=== PATIENT | male | born 1980 | race Caucasian/White ===

== ENCOUNTER 2024-07-04 05:09 | Emergency (ER) | payer BC, MEDICAID, SELFPAY ==
--- NOTE | ~2024-07-04 | CT_ITS ---
EXAMINATION: CT ABDOMEN AND PELVIS WITHOUT CONTRAST CLINICAL INFORMATION: Right flank pain. Hematuria. COMPARISON: None available. TECHNIQUE: Multidetector volumetric imaging was performed from the superior aspect of the liver through the pubic symphysis. Sagittal and coronal reformatted images were obtained on the technologist's workstation. This CT examination was performed using dose optimization techniques as appropriate, variously including the following: *Automated exposure control *Adjustment of mA and/or kV according to patient size (this includes techniques or standardized protocols for targeted exams where dose is matched to indication/reason for exam; i.e. extremities or head) *Use of iterative reconstruction technique DLP: 1293 mGy-cm FINDINGS: Visualized lung bases are well aerated. Thin pleural-based linear density within the medial right lung base is nonspecific but most suggestive of atelectasis versus scarring. The liver is normal in size. There is diffusely decreased attenuation of the liver. The gallbladder is normal in appearance. There is fatty atrophy of the pancreas. The spleen and adrenal glands are unremarkable. There is mild right-sided hydronephrosis secondary to a 7 mm calculus within the proximal right ureter. No other renal calculi are noted within the right kidney. There is mild to moderate asymmetric perinephric stranding of the right kidney. There is a 1.2 cm nonobstructing calculus noted within the lower pole of the left kidney. This stone demonstrates Hounsfield units of approximately 500 and is located 14 cm the posterior skin surface. There is no left-sided hydronephrosis. Normal caliber loops of small and large bowel. Mild colonic diverticulosis without CT evidence to suggest active diverticulitis. Normal appendix. Normal caliber abdominal aorta. No retroperitoneal lymphadenopathy. The bladder is normal in appearance. The prostate gland is normal in size. No gross free pelvic fluid. No inguinal lymphadenopathy. Mild diffuse degenerative changes of the spine CT/CT abdomen pelvis wo IV con IMPRESSION: 1. Mild right-sided hydronephrosis secondary to a 7 mm calculus within the proximal right ureter. 2. 1.2 cm nonobstructing calculus of the left kidney. No left-sided hydronephrosis. 3. Diffusely decreased attenuation of the liver suggesting hepatic steatosis. Correlation with liver enzymes recommended. 4. Mild colonic diverticulosis. Fleischner guidelines were followed. Electronically signed by: Malik Trejo MD 07/04/2024 08:38 AM EDT
[2024-07-04 05:13] VITALS: BP 139/87; PULSE 81; RESP 20; TEMP 36.9; O2SAT 98; BMI 46.0
[2024-07-04 05:34] LABS: MANUAL DIFF FLAG NO
[2024-07-04 05:36] LABS: Basophils Absolute Auto 0.1 X10*3/uL (0.0-0.2); Basophils Percent Auto 0.7 % (0-2); Eosinophils Absolute Auto 0.3 X10*3/uL (0.0-0.4); Eosinophils Percent Auto 2.6 % (0-4); Hematocrit 44.6 % (42.0-52.0); Hemoglobin 15.6 g/dl (14.0-18.0); Imm Gran Abs Auto 0.07 X10*3/uL (0.00-0.03); Imm Gran Pct Auto 0.7 % (0.0-0.4); Lymphocytes Absolute Auto 2.1 X10*3/uL (1.2-4.9); Mean Corpuscular Hemoglobin 29.1 pg (27.0-33.0); Mean Corpuscular Volume 83.1 fL (80.0-98.0); Mean Platelet Volume 10.2 fL (9.4-12.4); Monocytes Absolute Auto 0.6 X10*3/uL (0.1-1.2); Monocytes Percent Auto 5.9 % (2-11); Neutrophils Percent Auto 69.1 % (45-73); Platelet Count 241 X10*3/uL (160-400); Red Blood Count 5.37 X10*6/uL (4.60-5.80); Red Cell Distribution Width 12.7 % (11.0-16.0); White Blood Count 10.2 X10*3/uL (4.8-10.8)
[2024-07-04 05:45] VITALS: BP 171/89; PULSE 76; RESP 17; TEMP 37.1
[2024-07-04 05:57] LABS: Alanine Aminotransferase 37 U/L (0-40); Albumin Level 4.4 g/dL (3.5-5.0); Alkaline Phosphatase 84 U/L (39-117); Anion Gap 18 (12-20); Aspartate Amino Transferase 19 U/L (5-37); Bilirubin Total 0.8 mg/dL (0.0-1.0); Blood Urea Nitrogen 13 mg/dL (9-16); Calcium 9.1 mg/dL (8.4-10.2); Carbon Dioxide 22 mmol/L (22-29); Chloride 99 mmol/L (96-108); Creatinine Clr Calc Pharmacy 136.2; Estimated Glomerular Filt Rate > 60; Glucose Random 295 mg/dL (60-115); Lipase 31 U/L (8-78); Potassium 3.7 mmol/L (3.3-5.1); Sodium 135 mmol/L (135-145); Total Protein 7.1 g/dL (6.5-8.0)
[2024-07-04 06:05] LABS: COVID-19 Test Negative (Negative); IDNOW Serial# 6674DD1D
[2024-07-04 06:48] LABS: Appearance Urine Clear; Color Urine Yellow; Glucose Urine UA >=1000 mg/dL (Negative); Leukocyte Esterase Urine Negative (Negative); Nitrite Urine Negative (Negative); Specific Gravity - Urine 1.015 (1.005-1.025); UMIC TRIGGER UACC YES; Urine Blood Moderate (2+) (Negative); Urine Ketones 15 mg/dL (Negative); Urine Protein Negative (Neg-Trace)
[2024-07-04 06:53] LABS: Bacteria Urine None Seen (None Seen); Hyaline Casts Urine 0-2 /LPF (0-2); RBC Urine >20 /HPF (0-2); Squamous Epithelial Cell Urine 0-2 /HPF (0-2); WBC Urine 0-5 /HPF (0-5)
--- NOTE | 2024-07-04 07:30 | ED_ITS ---
HPI - Abdominal Pain General Chief Complaint: Abdominal Pain Stated Complaint: ? kidney stone Time Seen by Provider: 07/04/24 07:30 Source: patient Mode of arrival: ambulatory Limitations: no limitations History of Present Illness ED Provider: Bala Rico PA-C HPI narrative: 43-year-old male with a history of DM 2, obesity who presents to the ER for evaluation of acute onset of right flank pain, right lower back pain along with nausea and vomiting that woke him up out of sleep last night. Patient states the pain came on severe and suddenly, it waxes and wanes but is pretty constant. He has had intermittently radiates to the front of his abdomen but is mostly in his back and flank. He denies any diarrhea, fevers, hematuria, urgency or frequency. He denies any history of kidney stones in the past. No history of abdominal surgeries. MD elicited complaint: flank pain Pertinent past history: none Onset (ago): hour(s) Pain Consistency: constant Location: R flank Severity: severe Quality: stabbing Radiation: RUQ Migration to: no migration Exacerbating factors: nothing Relieving factors: nothing Associated symptoms: nausea and vomiting Related Data Previous Rx's ?Medication ?Instructions ?Recorded naproxen 500 mg tablet 500 mg PO BID PRN pain #14 tabs 07/04/24 ondansetron 4 mg disintegrating 4 mg PO Q8H PRN nausea and 07/04/24 tablet vomiting #7 tabs oxycodone 5 mg tablet 5 mg PO Q6H PRN severe pain (scale 07/04/24 score 7-10) #9 tabs tamsulosin 0.4 mg capsule (Flomax) 0.4 mg PO DAILY #20 caps 07/04/24 Allergies Allergy/AdvReac Type Severity Reaction Status Date / Time No Known Allergies Allergy Verified 07/04/24 05:15 Review of Systems Review of Systems Yes all other systems are reviewed and are negative PMFSH Social History Social History Smoked in Last 30 Days: No Use of substances other than those prescribed or required for medical reasons: No Advance Directives: No Advance Directives Information Provided: Yes Physical Exam ED Vital Signs: Vital Signs - 24 hr 07/04/24 05:13 07/04/24 05:45 07/04/24 07:50 Temperature 98.4 F 98.7 F 98.6 F Pulse Rate 81 76 73 Respiratory Rate 20 17 16 Blood Pressure 139/87 171/89 H 188/86 H Pulse Oximetry 98 99 Oxygen Delivery Method Room Air Room Air Room Air 07/04/24 10:09 Temperature 98.2 F Pulse Rate 88 Respiratory Rate 14 Blood Pressure 154/86 H Pulse Oximetry 99 Oxygen Delivery Method Room Air BMI result Body Mass Index 46.0 Appearance: Alert. Oriented X3. Appears uncomfortable, lying still on the stretcher. Head: normocephalic, atraumatic. Eyes: Pupils equal, round and reactive to light. ENT: Pharynx normal. No tonsillar swelling or exudate. Neck: Normal inspection. Neck supple. CVS: Normal heart rate and rhythm. Pulses normal. Respiratory: No respiratory distress. Breath sounds normal. Abdomen: Obese, Soft and nontender. +CVA tenderness on the right. normal active +BS x4 Skin: Skin warm and dry. Normal skin color. Normal skin turgor. No rashes. Extremities: No lower extremity edema. No joint swelling. Neuro/psych: Oriented X 3. No motor deficit. No sensory deficit. CN II-XII intact. Normal speech and cognition. Medical Decision Making Medical Decision Making MDM Narrative: 43-year-old male with history of obesity and type 2 diabetes presents to the ER for evaluation of acute onset of right flank pain that waxes and wanes along with nausea and vomiting that woke him up out of sleep last night. On arrival to the ER patient is hypertensive, afebrile. Not tachycardic. Lab work was performed that shows no leukocytosis, no anemia. Normal renal function. His urinalysis shows microscopic hematuria but no evidence of infection. High clinical suspicion for kidney stone. IV was established and he was given IV fluids, Toradol and Zofran. CT scan of the abdomen and pelvis was performed that showed a 7 mm proximal ureteral stone with mild hydronephrosis. Patient had improvement to his pain from a 9 to a for with Toradol. He was given oral oxycodone as well. Patient had significant improvement in his pain down to a [address] Malave from Urology was consulted. Will plan to discharge home with outpatient follow-up. His office will be aware & nurse will triage on Saturday. Patient updated on results, diagnosis, plan and return precautions. Stable for DC. Differential Diagnosis Differential Diagnoses: The differential diagnosis associated with the presentation includes Obstructing kidney stone, pyelonephritis, cholecystitis, appendicitis Admission/Observation Consideration of admission/observation: Escalation of care including admission/observation considered Consult Healthcare Provider Management of the patient was discussed with: Associate Media Director Dr. Malave Lab Data MDM Lab Attestation statement: I reviewed the patient's lab results. No leukocytosis, no anemia, normal renal function, hyperglycemia without anion gap. Microscopic hematuria without infection 07/04/24 05:27 07/04/24 05:27 Labs: Lab Results 07/04/24 07/04/24 Range/Units 05:27 06:34 WBC 10.2 (4.8-10.8) X10*3/uL RBC 5.37 (4.60-5.80) X10*6/uL Hgb 15.6 (14.0-18.0) g/dl Hct 44.6 (42.0-52.0) % MCV 83.1 (80.0-98.0) fL MCH 29.1 (27.0-33.0) pg MCHC 35.0 (31.0-36.0) g/dl RDW 12.7 (11.0-16.0) % Plt Count 241 (160-400) X10*3/uL MPV 10.2 (9.4-12.4) fL Immature Gran % (Auto) 0.7 H (0.0-0.4) % Neut % (Auto) 69.1 (45-73) % Lymph % (Auto) 21.0 (20-40) % [place] % (Auto) 5.9 (2-11) % Eos % (Auto) 2.6 (0-4) % Baso % (Auto) 0.7 (0-2) % Lymph # (Auto) 2.1 (1.2-4.9) X10*3/uL [place] # (Auto) 0.6 (0.1-1.2) X10*3/uL Eos # (Auto) 0.3 (0.0-0.4) X10*3/uL Baso # (Auto) 0.1 (0.0-0.2) X10*3/uL Abs Immat Gran (auto) 0.07 H (0.00-0.03) X10*3/uL Absolute Neuts (auto) 7.0 (2.0-8.3) x10*3/uL Absolute Nucleated RBC 0.000 (0.0-0.012) X10*3/uL Nucleated RBC % (auto) 0.0 (0.0-0.2) /100WBC Sodium 135 (135-145) mmol/L Potassium 3.7 (3.3-5.1) mmol/L Chloride 99 (96-108) mmol/L Carbon Dioxide 22 (22-29) mmol/L Anion Gap 18 (12-20) BUN 13 (9-16) mg/dL Creatinine 0.89 (0.5-1.4) mg/dL Estim Creat Clear Calc 136.2 Estimated GFR > 60 Random Glucose 295 H (60-115) mg/dL Calcium 9.1 (8.4-10.2) mg/dL Total Bilirubin 0.8 (0.0-1.0) mg/dL AST 19 (5-37) U/L ALT 37 (0-40) U/L Alkaline Phosphatase 84 (39-117) U/L Total Protein 7.1 (6.5-8.0) g/dL Albumin 4.4 (3.5-5.0) g/dL Lipase 31 (8-78) U/L Urine Color Yellow Urine Appearance Clear Urine pH 7.0 (5.0-9.0) Ur Specific [place] 1.015 (1.005-1.025) Urine Protein Negative (Neg-Trace) mg/dL Urine Glucose (UA) >=1000 H (Negative) mg/dL Urine Ketones 15 (Negative) mg/dL Urine Blood Moderate (2+) H (Negative) Urine Nitrite Negative (Negative) Ur Leukocyte Esterase Negative (Negative) Urine RBC >20 H (0-2) /HPF Urine WBC 0-5 (0-5) /HPF Ur Squamous Epith Cells 0-2 (0-2) /HPF Urine Bacteria None Seen (None Seen) Hyaline Casts 0-2 (0-2) /LPF COVID-19 (DUNG) Negative (Negative) COVID-19 Clin Com See Note Independent Interpretation I performed an independent interpretation of an: CT Scan Interpretation: Proximal ureteral stone with hydronephrosis, agrees radiology read Radiology Impression Discussion of test interpretation with radiology: I have reviewed the radiologist's reading. Radiologist Impression: CT/CT abdomen pelvis wo IV con IMPRESSION: 1. Mild right-sided hydronephrosis secondary to a 7 mm calculus within the proximal right ureter. 2. 1.2 cm nonobstructing calculus of the left kidney. No left-sided hydronephrosis. 3. Diffusely decreased attenuation of the liver suggesting hepatic steatosis. Correlation with liver enzymes recommended. 4. Mild colonic diverticulosis. Prescription Management I considered prescription management with: Pain Medication Chronic Conditions Patient?s care impacted by: Diabetes Medications Administered Discontinued Medications Generic Name Dose Route Start Last Admin Trade Name Freq PRN Reason Stop Dose Admin Acetaminophen 975 mg 07/04/24 08:42 07/04/24 08:48 Acetaminophen 325 Mg Tablet PO 07/04/24 08:43 975 mg ONCE ONE Administration Sodium Chloride 1,000 mls @ 999 mls/hr 07/04/24 07:30 07/04/24 09:17 Ns IVCONT 07/04/24 08:30 Infused .Q1H1M MEKA Infusion Ketorolac Tromethamine 30 mg 07/04/24 07:30 07/04/24 07:47 Ketorolac Tromethamine 30 Mg/Ml Vial IVPUSH 07/04/24 07:31 30 mg ONCE ONE Administration Ondansetron HCl 4 mg 07/04/24 07:34 07/04/24 07:47 Ondansetron Hcl 4 Mg/2 Ml Vial IVPUSH 07/04/24 07:35 4 mg ONCE ONE Administration Oxycodone HCl 5 mg 07/04/24 08:42 07/04/24 08:48 Oxycodone Hcl Immed Release 5 Mg Tablet PO 07/04/24 08:43 5 mg ONCE ONE Administration Tamsulosin HCl 0.4 mg 07/04/24 08:38 07/04/24 08:48 Tamsulosin Hcl 0.4 Mg Capsule PO 07/04/24 08:39 0.4 mg ONCE ONE Administration Critical Care Time Critical Care Time Critical Care Time: Yes Total Critical Care Time: 34 Attestation: I have personally provided critical care time exclusive of time spent on separately billable procedures. Time includes review of lab data, radiology results, discussion with consultants, and monitoring for potential decompensation. Intervention performed as documented. Discharge Plan Discharge Clinical Impression: Calculus of kidney and ureter Hydronephrosis Qualifiers: Hydronephrosis type: with ureteral calculous obstruction Qualified Code(s): N 13.2 - Hydronephrosis with renal and ureteral calculous obstruction Patient Disposition: Home, Self-Care Instructions: Hydronephrosis (ED), Ureteral Stones (ED) Additional Instructions: Your CT scan showed a kidney stone within the right ureter. Your kidney function was normal. Your urine test did not show any evidence of infection. Take the naproxen as needed for [id number] pain, kidney stone pain tends to do really well with anti-inflammatories like this. Take the prescribed medications as directed. Take oxycodone as needed for severe pain only, do not drive after taking this medication. Follow-up with your urologist on Saturday. They are aware of your case. Call for an appointment. If you develop new or worsening symptoms call 911 or come back to the ER for further evaluation. CT/CT abdomen pelvis wo IV con IMPRESSION: 1. Mild right-sided hydronephrosis secondary to a 7 mm calculus within the proximal right ureter. 2. 1.2 cm nonobstructing calculus of the left kidney. No left-sided hydronephrosis. 3. Diffusely decreased attenuation of the liver suggesting hepatic steatosis. Correlation with liver enzymes recommended. 4. Mild colonic diverticulosis. Prescriptions: New tamsulosin [Flomax] 0.4 mg capsule 0.4 mg PO DAILY Qty: 20 0RF naproxen 500 mg tablet 500 mg PO BID PRN (Reason: pain) Qty: 14 0RF oxycodone 5 mg tablet 5 mg PO Q6H PRN (Reason: severe pain (scale score 7-10)) Qty: 9 0RF Rx Instructions: Partial Fill upon patient request. ondansetron 4 mg tablet,disintegrating 4 mg PO Q8H PRN (Reason: nausea and vomiting) Qty: 7 0RF Referrals: [facility] [Provider Group] (CT/CT abdomen pelvis wo IV con IMPRESSION: 1. Mild right-sided hydronephrosis secondary to a 7 mm calculus within the proximal right ureter. 2. 1.2 cm nonobstructing calculus of the left kidney. No left-sided hydronephrosis. 3. Diffusely decreased attenuation of the liver suggesting hepatic steatosis. Correlation with liver enzymes recommended. 4. Mild colonic diverticulosis.) Matthew Morales MD [Primary Care Provider] - Interventions: ED Discharge Assessment Last Done: 07/04/24 10:09 Discharge Date/Time: 07/04/24 10:10 Print Language: Italian
[2024-07-04] MEDS: 0.9 % Sodium Chloride 1,000 ML 999 ML IVCONT (07:46)
[2024-07-04] MEDS: Ketorolac Tromethamine 30 MG/ML VIAL IVPUSH (07:47)
[2024-07-04] MEDS: ondansetron HCL 4 MG/2 ML VIAL IVPUSH (07:47)
[2024-07-04 07:50] VITALS: BP 188/86; PULSE 73; RESP 16; TEMP 37; O2SAT 99
[2024-07-04] MEDS: Tamsulosin HCL 0.4 MG CAPSULE PO (08:48)
[2024-07-04] MEDS: oxyCODONE HCl Immed Release 5 MG TABLET PO (08:48)
[2024-07-04] MEDS: Acetaminophen 325 MG TABLET 975 MG PO (08:48)
[2024-07-04 10:09] VITALS: BP 154/86; PULSE 88; RESP 14; TEMP 36.8; O2SAT 99
== END 2024-07-04 10:10 | disposition home or self-care (01) ==
PROVIDERS: Emergency Provider Emergency Medicine; PCP Internal Medicine
DX: N13.2 Hydronephrosis with renal and ureteral calculous obstruction (principal); R11.2 Nausea with vomiting, unspecified; E11.9 Type 2 diabetes mellitus without complications; Z11.52 Encounter for screening for COVID-19
CPT/HCPCS: 36415; 74176; 80053; 81001; 83690; 85025; 87635; 96361; 96374; 96375; 99284; 99285; J1885; J2405

== ENCOUNTER 2024-07-07 08:48 | Outpatient (AMB) | payer BC, MEDICAID, SELFPAY ==
--- NOTE | 2024-07-07 08:48 | MHC.OFFVIS ---
Intake Visit Reasons: kidney stones Intake Note: New Patient presents for tele visit initial visit for ER follow up : Kidney Stones Urology Medications: Tamsulosin Blood Thinner: none Cloud Services Architect Required: No Allergies No Known Allergies Allergy (Verified 07/07/24 09:52) Medication List - Last Reconciled 07/07/24 by ERWIN Scherer canagliflozin (Invokana) 300 mg PO DAILY metformin 500 mg PO BID naproxen 500 mg PO BID PRN ondansetron 4 mg PO Q8H PRN oxycodone 5 mg PO Q6H PRN pioglitazone 30 mg PO DAILY prednisone 20 mg PO DAILY 5 days tamsulosin (Flomax) 0.4 mg PO DAILY HPI Comments Details: Volodymyr is a very pleasant 43-year-old male patient of Dr. Morales who was accompanied by his father at today's video telehealth appointment. He has a past medical history of type 2 diabetes. He is being followed up on today via video telehealth for his history of nephrolithiasis and hydronephrosis. In discussion with the patient today reports having seeked emergency room care at [facility] this weekend for ongoing right-sided flank/abdominal pain he had been experiencing that was associated with nausea and vomiting. A CT of the abdomen was ordered and performed and these results were reviewed with the patient today. Mild right-sided hydronephrosis secondary to a 7 mm calculus within the proximal right ureter. 1.2 cm nonobstructing calculus of the left kidney no left-sided hydronephrosis. He reports compliance with medications as prescribed by ER physician. He reports pain has significantly decreased however continues with right-sided flank pain at times. He denies any previous history of nephrolithiasis and or surgical intervention for nephrolithiasis however he does report a family history of nephrolithiasis. He does not believe he has passed his kidney stone. We discussed surgical intervention for obstructing right nephrolithiasis as well as risks and benefits of this interventions. He otherwise offers no other issues or concerns at this time. [facility] Medical History (Updated 07/07/24 @ 09:55 by ERWIN Scherer) Diabetes mellitus type 2, uncomplicated Review of Systems Const All systems reviewed & are unremarkable except as noted in HPI and below Physical Exam Const General: cooperative, healthy appearing, comfortable, no acute distress, well developed, alert and awake Orientation/consciousness: patient oriented x3 Resp Effort & Inspection: normal respiratory effort and able to speak in complete sentences Neuro General: patient oriented x3 Psych Appearance: grossly normal and well kempt Mental Status: mental status grossly normal Speech and movement: Normal speech and movement present and Clear speech present Affect: normal affect Attitude: cooperative Thought process: Normal thought process present Thought content: Normal thought content present Insight: Fair insight present (Psych) Judgement: Fair judgement present (Psych) Telehealth Telehealth Telehealth Platform: [employer] Location of provider rendering services: practice address Location of patient: address on file Patient Identification confirmed using: Name, : Yes Telehealth method: video Patient verbally consented to treatment: Yes Patient verbally consented to billing insurance company: Yes Patient informed of any privacy concerns related to visit: Yes Minutes spent on Phone/Video with Pt.: 20 Results Reviewed Results Reviewed: Date of Service: 07/04/24 EXAMINATION: CT ABDOMEN AND PELVIS WITHOUT CONTRAST FINDINGS: Visualized lung bases are well aerated. Thin pleural-based linear density within the medial right lung base is nonspecific but most suggestive of atelectasis versus scarring. The liver is normal in size. There is diffusely decreased attenuation of the liver. The gallbladder is normal in appearance. There is fatty atrophy of the pancreas. The spleen and adrenal glands are unremarkable. There is mild right-sided hydronephrosis secondary to a 7 mm calculus within the proximal right ureter. No other renal calculi are noted within the right kidney. There is mild to moderate asymmetric perinephric stranding of the right kidney. There is a 1.2 cm nonobstructing calculus noted within the lower pole of the left kidney. This stone demonstrates Hounsfield units of approximately 500 and is located 14 cm the posterior skin surface. There is no left-sided hydronephrosis. Normal caliber loops of small and large bowel. Mild colonic diverticulosis without CT evidence to suggest active diverticulitis. Normal appendix. Normal caliber abdominal aorta. No retroperitoneal lymphadenopathy. The bladder is normal in appearance. The prostate gland is normal in size. No gross free pelvic fluid. No inguinal lymphadenopathy. Mild diffuse degenerative changes of the spine IMPRESSION: 1. Mild right-sided hydronephrosis secondary to a 7 mm calculus within the proximal right ureter. 2. 1.2 cm nonobstructing calculus of the left kidney. No left-sided hydronephrosis. 3. Diffusely decreased attenuation of the liver suggesting hepatic steatosis. Correlation with liver enzymes recommended. 4. Mild colonic diverticulosis. Assessment & Plan Assessment & Plan (1) Hydronephrosis concurrent with and due to calculi of kidney and ureter: Code(s): N13.2 - Hydronephrosis with renal and ureteral calculous obstruction Category: Medical (2) Flank pain: Code(s): R10.9 - Unspecified abdominal pain Category: Medical Plan: Ureteroscopy We discussed the nature of the decision and reasonable alternatives for performing ureteroscopy. Options such as medical therapy were discussed. Interventions include chemical dissolution, ESWL, ureteroscopy with laser lithotripsy and stent placement, PCNL. The relative uncertainties and benefits related to each alternate procedure were adequately discussed. General surgical risks including, but not limited to - pain, bleeding, infection, myocardial infarction, pulmonary embolus, deep vein thrombosis and cerebrovascular accident which may result in further hospitalization were discussed.? Full disclosure of the procedure as well as all major risks, benefits and complications were discussed including but not limited to damage to the urethra, bladder and kidney infection, damage to the ureter, stent migration or malposition, scarring to the renal pelvis, remnant stone fragments, subsequent stone passage with need for secondary procedures. The overall secondary procedure rate is approximately 10-15%.? The overall clearance rate is approximately 90-95%. Success of the procedure in the short-term does not necessarily guarantee that long-term success will be maintained. Suitable follow up will need to be maintained. The patient showed understanding of discussion and wishes to proceed with - cystoscopy, retrograde, ureteroscopy, possible lithotripsy/stone basketing and stent on the right side. Plan Recent CT results reviewed with the patient today; as noted above. Discussed surgical intervention to include ureteroscopy; risks and benefits of these interventions were discussed as noted above. All questions were answered. Continue Flomax in p.r.n. pain medications as prescribed. Discussed, educated, and stressed the importance hydration relation to nephrolithiasis as well as overall health and well being. Discussed asked worsening symptoms to seek emergency room care. Will schedule for right-sided ureteroscopy as discussed. Follow-up per doctor's orders; or sooner with any issues, concerns, and or questions. Medications: New prednisone 20 mg PO DAILY 5 tabs 0RF 5 days N20.0 - Calculus of kidney Patient Instructions: The patient had an opportunity to ask questions regarding the treatment plan. All questions were answered. Physical exam, labs, and imaging were discussed and reviewed in detail. As well as risks, benefits, and discussion of treatment choices. No major barriers to understanding were identified. The patient expressed understanding and agreement with the above treatment plan. The patient was made aware they should contact our office by phone for worsening of their current condition, the appearance of new symptoms, or with any questions or concerns. Compliance is encouraged with any medications and follow up testing that is ordered. It is a privilege to be allowed the opportunity to participate in? your urological care.? Again, if you have any questions or concerns If you have any questions or concerns please do not hesitate to contact me. The office is [phone]. This note is constructed using voice recognition software. While every effort has been made to ensure accuracy television parts tester errors may have been included. Yours sincerely, ERWIN Scherer Coding Level of Care Code Tele New Pt Level 4 (53569) Diagnoses Hydronephrosis concurrent with and due to calculi of kidney and ureter N13.2 Flank pain R10.9
== END 2024-07-07 09:58 | disposition home or self-care (01) ==
LOC: HO.HUSH 08:48
PROVIDERS: PCP Internal Medicine; Visit Provider Nurse Practitioner Family
DX: N13.2 Hydronephrosis with renal and ureteral calculous obstruction (principal); R10.9 Unspecified abdominal pain
CPT/HCPCS: 99204

== ENCOUNTER → 2024-07-07 08:48 | Outpatient (BNVA) | payer BC, MEDICAID, SELFPAY | PROVIDERS: PCP Internal Medicine; Visit Provider Nurse Practitioner Family ==

== ENCOUNTER 2024-07-14 08:51 | Day surgery (SDC) | payer MEDICARE, MEDICAID, SELFPAY ==
--- NOTE | 2024-07-10 10:19 | HO.ANESPROP2 ---
Documented by User: Klaudia Bustamante NP 07/10/24 10:20 HPI - Anesthesia Eval Consult details Narrative: 43yo M for Right Cystoscopy, Ureteroroscopy, Retro, Laser,with stent placement Anesthesia Pre-Procedure Meds Is the patient on any of the following meds?: SGLT2 Inhib PMFSH Active Problems Active Problems: All Active Problems Flank pain (Acute) Hydronephrosis concurrent with and due to calculi of kidney and ureter (Acute) Past Medical History Medical History Diabetes mellitus type 2, uncomplicated Surgical History Surgical History History of surgery Hx of adenoidectomy Hx of tonsillectomy Social History Social History Are you a primary resident care coordinator to a significant other at home: No Do you presently have visiting nurse or other home services: No Patient Tobacco Use Status: Never used Tobacco Use of substances other than those prescribed or required for medical reasons: No Have you been hit, kicked, punched, or otherwise hurt by someone within the past year? If so, by whom?: No Are you DNR?: No Advance Directives: No Advance Directives Information Provided: Yes Recently lost weight without trying: No How much weight loss: Not applicable Eating poorly because of decreased appetite: No Nutrition screen score: 0 Nutrition Risks: No Nutritional Risk Poor oral hygiene: No Meds Allergies Allergy/AdvReac Type Severity Reaction Status Date / Time No Known Allergies Allergy Verified 07/14/24 09:22 Home Medications ?Medication ?Instructions ?Recorded ?Confirmed ?Last Taken ?Type metformin 500 mg tablet 500 mg PO BID 07/07/24 07/14/24 07/13/24 History canagliflozin 300 mg tablet 300 mg PO DAILY 07/13/24 07/14/24 07/04/24 History (Invokana) pioglitazone 30 mg tablet 30 mg PO DAILY 07/13/24 07/14/24 07/13/24 History semaglutide 3 mg tablet (Rybelsus) 3 mg PO DAILY 07/13/24 07/14/24 07/12/24 History Exam Pertinent Lab Results Pertinent Lab Results: Laboratory Tests 07/04/24 05:27 WBC 10.2 Hgb 15.6 Hct 44.6 Plt Count 241 Sodium 135 Potassium 3.7 Chloride 99 Carbon Dioxide 22 BUN 13 Creatinine 0.89 Assessment and Plan Assessment Anesthesia Assessment: Chart Reviewed Documented by User: Katerina Bañuelos MD 07/14/24 10:29 [facility] Past Medical History Medical History Diabetes mellitus type 2, uncomplicated Family History Family history of problems with anesthesia: No Surgical History Surgical History History of surgery Hx of adenoidectomy Hx of tonsillectomy History of Problems with Anesthesia: No Social History Social History Are you a primary resident care coordinator to a significant other at home: No Do you presently have visiting nurse or other home services: No Patient Tobacco Use Status: Never used Tobacco Use of substances other than those prescribed or required for medical reasons: No Have you been hit, kicked, punched, or otherwise hurt by someone within the past year? If so, by whom?: No Are you DNR?: No Advance Directives: No Advance Directives Information Provided: Yes Recently lost weight without trying: No How much weight loss: Not applicable Eating poorly because of decreased appetite: No Nutrition screen score: 0 Nutrition Risks: No Nutritional Risk Poor oral hygiene: No Meds Allergies Allergy/AdvReac Type Severity Reaction Status Date / Time No Known Allergies Allergy Verified 07/14/24 09:22 Home Medications ?Medication ?Instructions ?Recorded ?Confirmed ?Last Taken ?Type metformin 500 mg tablet 500 mg PO BID 07/07/24 07/14/24 07/13/24 History canagliflozin 300 mg tablet 300 mg PO DAILY 07/13/24 07/14/24 07/04/24 History (Invokana) pioglitazone 30 mg tablet 30 mg PO DAILY 07/13/24 07/14/24 07/13/24 History semaglutide 3 mg tablet (Rybelsus) 3 mg PO DAILY 07/13/24 07/14/24 07/12/24 History Exam Airway Mallampati Class: III TM Dist: <=3cm Neck ROM: Full Heart: rrr Lungs: cta Assessment and Plan Assessment Anesthesia Assessment: Anesthesia Plan Discussed Final Anesthetic Review Family History of Problems with Anesthesia: No History of Problems with Anesthesia: No NPO: Yes ASA Class: III Final Preanesthetic Review: No Changes in Pt Med Stat, Meds/Allgs Chart Reviewed, Consent Obtained/Reviewed and Anes Risks/Benef Reviewed Patient Risk: Intermediate Procedure Risk: Low Anesthetic Plan Anesthetic Plan: GA Disposition: Standard PACU
[2024-07-14 09:32] VITALS: BP 181/102; PULSE 83; RESP 16; TEMP 36.5; O2SAT 100; BMI 45.8
[2024-07-14 09:42] LABS: Glucose, Whole Blood 173 mg/dL (60-115)
[2024-07-14 09:46] VITALS: BP 164/89
[2024-07-14] MEDS: Lactated Ringers 1,000 ML 100 ML IVCONT (09:52)
--- NOTE | 2024-07-14 11:03 | MHC.SHP ---
Pre-Procedural Eval Section A - 24 Hr Update-Section A only Date of Service: 07/14/24 The patient is an INPATIENT: No The patient has been examined within 24 hours of the surgical procedure. The History & Physical has been completed within 30 days and I have reviewed it.: Yes Section B - Complete if H&P > 30 days Chief Complaint: Hydronephrosis with renal and ureteral calculous Allergies: Allergies Allergy/AdvReac Type Severity Reaction Status Date / Time No Known Allergies Allergy Verified 07/14/24 09:22 Plan Diagnosis/Plan: Unchanged I have reviewed the history and physical and performed a pertinent physical examination on my patient. No changes have occurred unless specified. Plan for Cystoscopy, right retrograde, ureteroscopy, possible laser lithotripsy, possible ureteral stent. Risks discussed included but not limited to, possible need to repeat procedure if stone is not completely fragmented, Irritative voiding symptoms, bladder spasms, urgency, blood in urine. Time Spent With Patient Time: Total time managing care of this patient today ____ minutes.
[2024-07-14 12:25] VITALS: BP 130/72; PULSE 271; RESP 15; TEMP 36.6; O2SAT 94
--- NOTE | 2024-07-14 12:25 | W.PM.OPN ---
Operative Note Operative Note Date of Service: 07/14/24 Narrative: PreOperative Diagnosis:?? Right ureteral stone Post Operative Diagnosis:?? Right ureteral stone Procedure: - Cystoscopy, right retrograde, right ureteroscopy laser lithotripsy stent insertion, 6 Namibian by 22-32 cm Surgeon:?Dr Freddie An Anesthesia:? General Procedure: After informed consent was verified the patient was brought to the operating placed on the OR table in supine position.? General Anesthesia was administered per protocol.? The patient was placed in lithotomy position, prepped and draped in the usual sterile fashion.? Safety pause time-out and side of surgery confirmed.? Antibiotics confirmed. 2% lidocaine jelly 10 mL was passed transurethrally. A 22 Namibian cystoscope was inserted transurethrally, the bulbous urethra was within normal limits. The prostatic urethra was nonobstructive. The bladder was visualized.? Both ureteric orifices were in normal position. An open-ended ureteral catheter was passed into the right ureteral orifice and a retrograde examination was performed. There was a filling defect in the distal ureter and dilatation of the proximal ureter. A guidewire was passed through the ureteral catheter into the kidney. The balloon dilator size 12 fr x 4 cm was passed over the guide-wire the balloon was inflated to 8 mmHg and the intramural ureter was dilated for 30 seconds. The balloon was deflated and removed. After removing the balloon dilator a 2nd guidewire was then passed into the kidney to use as a safety. The cystoscope was removed, leaving both guidewires in place. One guidewire was used as the safety and was attached to the draping. The semi rigid ureteroscope was passed over one of the guidewires to the level of the stone in the ureter. One guidewire was then removed. Laser lithotripsy of the stone was done using the 365 fiber with a alternating pulsating and dusting setting. There was good fragmentation of the stone. The 0 degree basket was passed through the ureteroscope, stone fragment(s) removed and sent for analysis. The ureteroscope was removed. The cystoscope was passed over the safety guidewire. A? 6 Namibian by 22-32 cm stent was placed into the ureter and renal pelvis under a combination of fluoroscopy and direct visualization. The bladder was emptied.? The rigid cystoscope was removed. ? The patient tolerated the procedure well and was brought to the recovery room in stable condition. Complications: None Drains: Ureteral stent as dictated above
[2024-07-14 12:30] VITALS: BP 135/63; PULSE 80; RESP 15; O2SAT 95
[2024-07-14 12:40] VITALS: BP 118/70; PULSE 78; RESP 17; O2SAT 94
[2024-07-14] MEDS: Phenazopyridine HCL 200 MG TABLET PO (12:45)
[2024-07-14 13:00] VITALS: BP 118/70; PULSE 79; RESP 18; TEMP 36.1; O2SAT 97
[2024-07-19 17:48] LABS: Stone Source KIDNEY STONE
== END 2024-07-14 13:36 | disposition home or self-care (01) ==
PROVIDERS: PCP Internal Medicine; Visit Provider Urology
PROC: (CPT 52356; principal; 2024-07-14 11:00)
DX: N13.2 Hydronephrosis with renal and ureteral calculous obstruction (principal); R10.9 Unspecified abdominal pain; E11.9 Type 2 diabetes mellitus without complications; Z79.84 Long term (current) use of oral hypoglycemic drugs; Z79.899 Other long term (current) drug therapy
CPT/HCPCS: 52356; 82365; 82947; 88300; C1726; C1758; C1769; C2617; J0690; J1100; J1885; J2250; J2371; J2405; J2704; J3010; Q9967

== ENCOUNTER → 2024-07-14 08:51 | Outpatient (BNV) | payer MEDICARE, MEDICAID, SELFPAY | PROVIDERS: PCP Internal Medicine; Visit Provider Urology | DX: N20.1 Calculus of ureter (principal) | CPT/HCPCS: 52356; 74420 ==

== ENCOUNTER 2024-07-31 12:58 | Outpatient (AMB) | payer BC, MEDICAID, SELFPAY ==
--- NOTE | 2024-07-31 13:22 | MHC.OFFVIS ---
Intake Visit Reasons: Stent removal Intake Note: Patient is present for STENT REMOVAL Urology Medication:PHENAZOLPYRIDINE, TAMULOSIN Antibiotic Allergy:NONE Blood Thinner:NONE Ice Crusher Required: No Allergies No Known Allergies Allergy (Verified 07/31/24 13:25) HPI Comments Details: 07/31/24--Status post right ureteroscopy laser lithotripsy, stent 07/14/24 Here to have stent removed. Right ureteral stent without removed difficulty. The patient has Left renal stone. Discussed risks to include but not limited to, blood in the urine, bruising to the skin, kidney hematoma, possible need for another procedure if a stone fragment obstructs the ureter while passing, possible need to repeat procedure if stone is not completely fragmented. Review of chart: 07/07/24--Volodymyr is a very pleasant 43-year-old male patient of Dr. Morales who was accompanied by his father at today's video telehealth appointment. He has a past medical history of type 2 diabetes. He is being followed up on today via video telehealth for his history of nephrolithiasis and hydronephrosis. In discussion with the patient today reports having seeked emergency room care at [facility] this weekend for ongoing right-sided flank/abdominal pain he had been experiencing that was associated with nausea and vomiting. A CT of the abdomen was ordered and performed and these results were reviewed with the patient today. Mild right-sided hydronephrosis secondary to a 7 mm calculus within the proximal right ureter. 1.2 cm nonobstructing calculus of the left kidney no left-sided hydronephrosis. He reports compliance with medications as prescribed by ER physician. He reports pain has significantly decreased however continues with right-sided flank pain at times. He denies any previous history of nephrolithiasis and or surgical intervention for nephrolithiasis however he does report a family history of nephrolithiasis. He does not believe he has passed his kidney stone. We discussed surgical intervention for obstructing right nephrolithiasis as well as risks and benefits of this interventions. He otherwise offers no other issues or concerns at this time. [facility] Medical History Diabetes mellitus type 2, uncomplicated Surgical History History of surgery Hx of adenoidectomy Hx of tonsillectomy Social History Are you a primary primary care nurse practitioner to a significant other at home: No Do you presently have visiting nurse or other home services: No Patient Tobacco Use Status: Never used Tobacco Review of Systems Const All systems reviewed & are unremarkable except as noted in HPI and below Reports no additional complaints Eyes Reports no additional complaints ENT Reports no additional complaints Card Reports no additional complaints Resp Reports no additional complaints GI Reports no additional complaints Reports as per HPI Musc Reports no additional complaints Skin/Breast Reports system reviewed and no additional complaints, except as documented Neuro Reports no additional complaints Psych Reports no additional complaints Endo Reports no additional complaints Flavio/Lymph Reports no additional complaints Aller/Immun Reports no additional complaints Office Procedures Cystoscopy Consent Discussed risk and benefit or proposed procedure with the patient. Information consent for procedure given to the patient. Discussed technical aspects, risks, benefits and alternatives in full. Addressed all of the patient's questions and concerns regarding the procedure. The patient demonstrated knowledge and understanding. They wish to proceed with this procedure. Preparation The patient was prepped in the usual manner. A automobile service station attendant was present and in the room. Genitalia was prepped with betadine solution in a sterile manner. Lidocaine Jelly 2% was placed into the urethra and 16Fr flexible Olympus cystoscope was inserted into the meatus after adequate lubrication. Procedure Time out per protocol performed. Bladder Inspection Cystoscopy findings: mild edema ureteral orifice which is expected, distal end of ureteral stent visualized. The grasping forceps were used and the stent was removed without difficulty. [id number] with stent removal DISPOSABLE SCOPE URO-G FLEXIBLE SCOPE Procedure code (CPT) selection complete Office Meds lidocaine HCl 2 % mucosal jelly in applicator Performing Provider: Freddie An MD Performing Location: [facility] Administered by: Chato Phelan LPN on 07/31/24 13:55 Dose Route Admin Location Dispensed Lot Number Expiration Date [facility] Biology Tutor 10 mL intra-urethral 20 mL naproxen 500 mg tablet Performing Provider: Freddie An MD Performing Location: [facility] Administered by: Chato Phelan LPN on 07/31/24 13:55 Dose Route Admin Location Dispensed Lot Number Expiration Date [facility] [employer] Tutor 500 mg PO 1 tab ciprofloxacin HCl 500 mg tablet Performing Provider: Freddie An MD [facility] Administered by: Chato Phelan LPN on 07/31/24 13:55 Dose Route Admin Location Dispensed Lot Number Expiration Date [facility] Biology Tutor 500 mg PO 1 tab Results AMB Urinalysis, Automated UA Leukoctes 15 Vanessa/uL Last Edit by GREGG Cook on 07/31/24 13:50 UA Nitrite Negative Last Edit by GREGG Cook on 07/31/24 13:50 UA Urobilinogen 0.2 mg/dL Last Edit by GREGG Cook on 07/31/24 13:50 UA Protein 100 mg/dL Last Edit by GREGG Cook on 07/31/24 13:50 UA pH 6.0 Last Edit by GREGG Cook on 07/31/24 13:50 UA Blood 200 Wilbert/uL Last Edit by GREGG Cook on 07/31/24 13:50 UA Specific Republic 1.015 Last Edit by GREGG Cook on 07/31/24 13:50 UA Ketone Negative Last Edit by GREGG Cook on 07/31/24 13:50 UA Bilirubin 0 mg/dL Last Edit by GREGG Cook on 07/31/24 13:50 UA Glucose 0 mg/dL Last Edit by GREGG Cook on 07/31/24 13:50 Results Reviewed Results Reviewed: Laboratory Last Values Urine pH (Auto) 6.0 07/31/24 13:50 Specific Republic (Auto) 1.015 07/31/24 13:50 Urine Protein (Auto) 100 mg/dL 07/31/24 13:50 Glucose (UA)(Auto) 0 mg/dL 07/31/24 13:50 Urine Ketones (Auto) Negative 07/31/24 13:50 Urine Blood (Auto) 200 Wilbert/uL 07/31/24 13:50 Urine Nitrite (Auto) Negative 07/31/24 13:50 Urine Bilirubin (Auto) 0 mg/dL 07/31/24 13:50 Urine Urobilinogen (Auto) 0.2 mg/dL 07/31/24 13:50 Leukocyte Esterase (Auto) 15 Vanessa/uL 07/31/24 13:50 Date of Service: 07/04/24 EXAMINATION: CT ABDOMEN AND PELVIS WITHOUT CONTRAST FINDINGS: Visualized lung bases are well aerated. Thin pleural-based linear density within the medial right lung base is nonspecific but most suggestive of atelectasis versus scarring. The liver is normal in size. There is diffusely decreased attenuation of the liver. The gallbladder is normal in appearance. There is fatty atrophy of the pancreas. The spleen and adrenal glands are unremarkable. There is mild right-sided hydronephrosis secondary to a 7 mm calculus within the proximal right ureter. No other renal calculi are noted within the right kidney. There is mild to moderate asymmetric perinephric stranding of the right kidney. There is a 1.2 cm nonobstructing calculus noted within the lower pole of the left kidney. This stone demonstrates Hounsfield units of approximately 500 and is located 14 cm the posterior skin surface. There is no left-sided hydronephrosis. Normal caliber loops of small and large bowel. Mild colonic diverticulosis without CT evidence to suggest active diverticulitis. Normal appendix. Normal caliber abdominal aorta. No retroperitoneal lymphadenopathy. The bladder is normal in appearance. The prostate gland is normal in size. No gross free pelvic fluid. No inguinal lymphadenopathy. Mild diffuse degenerative changes of the spine IMPRESSION: 1. Mild right-sided hydronephrosis secondary to a 7 mm calculus within the proximal right ureter. 2. 1.2 cm nonobstructing calculus of the left kidney. No left-sided hydronephrosis. 3. Diffusely decreased attenuation of the liver suggesting hepatic steatosis. Correlation with liver enzymes recommended. 4. Mild colonic diverticulosis. Assessment & Plan Assessment & Plan (1) Kidney stone on left side: Code(s): N20.0 - Calculus of kidney Category: Medical Plan right ureteral stent removed sched Left ESWL Orders: Orders AMB Urinalysis Automated 07/31/24 Z13.9 - Encounter for screening, unspecified AMB Cystoscopy 07/31/24 R10.9 - Unspecified abdominal pain, N13.2 - Hydronephrosis with renal and ureteral calculous obstruction Patient Instructions: The patient had an opportunity to ask questions regarding treatment plan. The patient expressed understanding and agreement with the above treatment plan. The patient is aware they should contact our office by phone for worsening of their current condition or the appearance of new symptoms. Compliance is encouraged with any medications and followup testing that is ordered. It is a privilege to be allowed the opportunity to participate in the urologic care of your patient. If you have any questions or concerns regarding treatment for the above conditions please do not hesitate to contact me. The office telephone contact is [phone]. This note is constructed in part using voice recognition software. While every effort has been made to ensure accuracy diabetes manager errors may have been included. Yours sincerely, Freddie An MD Coding Level of Care Code Est Pt Level 3 (48797) Diagnoses Kidney stone on left side N20.0 CPT Codes Cystoscopy - CPT: 70454-[id number] with stent removal ([id number])
== END 2024-07-31 14:37 | disposition home or self-care (01) ==
PROVIDERS: PCP Internal Medicine; Visit Provider Urology
DX: R10.9 Unspecified abdominal pain (principal); N13.2 Hydronephrosis with renal and ureteral calculous obstruction; Z96.0 Presence of urogenital implants
CPT/HCPCS: 52310; 99213

== ENCOUNTER → 2024-07-31 12:58 | Outpatient (BNVA) | payer BC, MEDICAID, SELFPAY | PROVIDERS: PCP Internal Medicine; Visit Provider Urology | DX: Z48.816 Encounter for surgical aftercare following surgery on the genitourinary system (principal); N20.0 Calculus of kidney | CPT/HCPCS: 52310; 81003 ==

== ENCOUNTER 2024-09-23 06:49 | Day surgery (SDC) | payer BC, MEDICAID, SELFPAY ==
[2024-09-21 13:46] VITALS: BMI 45.8
--- NOTE | 2024-09-22 09:48 | P.CONAN_ITS ---
Documented by User: Klaudia Bustamante NP 09/22/24 09:49 HPI - Anesthesia Eval Consult details Narrative: 43yo M for Left ESWL s/p cysto, etc 06/2024 with GA-LMA 5 Anesthesia Pre-Procedure Meds Is the patient on any of the following meds?: GLP1/DPP4 and SGLT2 Inhib PMFSH Active Problems Active Problems: All Active Problems Kidney stone on left side (Acute) Flank pain (Acute) Hydronephrosis concurrent with and due to calculi of kidney and ureter (Acute) Past Medical History Medical History (Updated 08/25/24 @ 12:06 by Freddie An MD) Diabetes mellitus type 2, uncomplicated Family History Family history of problems with anesthesia: No Surgical History Surgical History (Updated 09/21/24 @ 13:44 by Geovanna Butcher RN) Hx of cystoscopy History of surgery Hx of adenoidectomy Hx of tonsillectomy History of Problems with Anesthesia: No Social History Social History Are you a primary director of home care hospice to a significant other at home: No Do you presently have visiting nurse or other home services: No Patient Tobacco Use Status: Never used Tobacco Use of substances other than those prescribed or required for medical reasons: No Are you DNR?: No Advance Directives: No Advance Directives Information Provided: Yes Meds Allergies Allergy/AdvReac Type Severity Reaction Status Date / Time No Known Allergies Allergy Verified 07/31/24 13:25 Home Medications ?Medication ?Instructions ?Recorded ?Confirmed ?Last Taken ?Type metformin 500 mg tablet 500 mg PO BID 07/07/24 09/23/24 09/23/24 06:00 History canagliflozin 300 mg tablet 300 mg PO DAILY 07/13/24 09/23/24 09/15/24 History (Invokana) pioglitazone 30 mg tablet 30 mg PO DAILY 07/13/24 09/23/24 09/23/24 06:00 History semaglutide 3 mg tablet (Rybelsus) 3 mg PO DAILY 07/13/24 09/23/24 09/15/24 History lisinopril 10 mg tablet 10 mg PO DAILY 09/21/24 09/23/24 09/23/24 06:00 History Exam Height,Weight and Vital Signs: Height 5 ft 6 in Weight 128.82 kg Assessment and Plan Assessment Anesthesia Assessment: Chart Reviewed Final Anesthetic Review Family History of Problems with Anesthesia: No History of Problems with Anesthesia: No Documented by User: Amilcar Schulz MD 09/23/24 09:01 [facility] Past Medical History Medical History (Updated 08/25/24 @ 12:06 by Freddie An MD) Diabetes mellitus type 2, uncomplicated Surgical History Surgical History (Updated 09/21/24 @ 13:44 by Geovanna Butcher RN) Hx of cystoscopy History of surgery Hx of adenoidectomy Hx of tonsillectomy Social History Social History Are you a primary director of home care hospice to a significant other at home: No Do you presently have visiting nurse or other home services: No Patient Tobacco Use Status: Never used Tobacco Use of substances other than those prescribed or required for medical reasons: No Are you DNR?: No Advance Directives: No Advance Directives Information Provided: Yes Meds Allergies Allergy/AdvReac Type Severity Reaction Status Date / Time No Known Allergies Allergy Verified 07/31/24 13:25 Home Medications ?Medication ?Instructions ?Recorded ?Confirmed ?Last Taken ?Type metformin 500 mg tablet 500 mg PO BID 07/07/24 09/23/24 09/23/24 06:00 History canagliflozin 300 mg tablet 300 mg PO DAILY 07/13/24 09/23/24 09/15/24 History (Invokana) pioglitazone 30 mg tablet 30 mg PO DAILY 07/13/24 09/23/24 09/23/24 06:00 History semaglutide 3 mg tablet (Rybelsus) 3 mg PO DAILY 07/13/24 09/23/24 09/15/24 History lisinopril 10 mg tablet 10 mg PO DAILY 09/21/24 09/23/24 09/23/24 06:00 History Exam Airway Mallampati Class: I TM Dist: <=3cm Neck ROM: Full Loose/Missing/Broken Teeth: No Heart: ok Lungs: ok. room air Sat 98%. Assessment and Plan Assessment Anesthesia Assessment: Anesthesia Plan Discussed Final Anesthetic Review NPO: Yes ASA Class: III Final Preanesthetic Review: No Changes in Pt Med Stat, Meds/Allgs Chart Reviewed, Consent Obtained/Reviewed and Anes Risks/Benef Reviewed Patient Risk: Intermediate Procedure Risk: Low Anesthetic Plan Anesthetic Plan: GA and Agree w/ Assess. and Plan Disposition: Standard PACU
--- NOTE | ~2024-09-23 | XR_ITS ---
EXAMINATION: XR ABDOMEN KUB CLINICAL INDICATION: Pre Left ESWL. COMPARISON: CT Abdomen pelvis without IV contrast 07/04/2024 TECHNIQUE: AP view of the abdomen. FINDINGS: The bowel gas pattern is normal with no evidence of ileus or obstruction. Left lower pole renal stone, unchanged. The bones are unremarkable. XR/XR KUB IMPRESSION: Unchanged left lower pole renal stone measuring 1.2 cm. Electronically signed by: Sammy Rowley MD 10/13/2024 11:35 AM [facility]
[2024-09-23 07:54] VITALS: BP 146/92; PULSE 79; RESP 18; TEMP 36.4; O2SAT 98; BMI 45.2
[2024-09-23] MEDS: Lactated Ringers 1,000 ML 100 ML IVCONT (08:07)
[2024-09-23 08:10] LABS: Glucose, Whole Blood 202 mg/dL (60-115)
--- NOTE | 2024-09-23 08:18 | MHC.SHP ---
Pre-Procedural Eval Section A - 24 Hr Update-Section A only Date of Service: 09/23/24 The patient is an INPATIENT: No The patient has been examined within 24 hours of the surgical procedure. The History & Physical has been completed within 30 days and I have reviewed it.: Yes Section B - Complete if H&P > 30 days Chief Complaint: Calculus of kidney Allergies: Allergies Allergy/AdvReac Type Severity Reaction Status Date / Time No Known Allergies Allergy Verified 07/31/24 13:25 Plan Diagnosis/Plan: Unchanged I have reviewed the history and physical and performed a pertinent physical examination on my patient. No changes have occurred unless specified. Left ESWL. Discussed risks to include but not limited to, blood in the urine, bruising to the skin, kidney hematoma, possible need for another procedure if a stone fragment obstructs the ureter while passing, possible need to repeat procedure if stone is not completely fragmented. The patient is Jehovah Witness and refuses blood transfusion. Time Spent With Patient Time: Total time managing care of this patient today ____ minutes.
--- NOTE | 2024-09-23 09:21 | W.PM.OPN ---
Operative Note Operative Note Date of Service: 09/23/24 Narrative: PreOperative Diagnosis:? ? Left Renal stone Post Operative Diagnosis:??Left Renal stone Procedure:?? Left ESWL Surgeon:?Dr Freddie An Anesthesia:? General The patient understands there is a risk of bruising or hematoma to the kidney, infection, and stone migration following the procedure and subsequent intervention may be required.? - Imaging 1.2 cm stone lower pole Left kidney Procedure: After informed consent was verified the patient was brought to the operating room and placed in a supine position.? Anesthesia was performed per protocol. Safety pause time-out was performed. Imaging was displayed in the room and laterality confirmed. ESWL was performed.?The stone was visualized on both fluoroscopy and ultrasound.? Shockwave lithotripsy was performed, with a maximum rate of 120 hertz. After the first 300 shocks a pause for 3 minutes was completed.? A total of 2500 shocks to a maximum of power of 20 with a maximum rate of 120 hertz.? Some fragmentation of the stone was appreciated. The patient tolerated the procedure well and was transferred to the recovery area upon completion. Complications: None
[2024-09-23 09:30] VITALS: BP 127/67; PULSE 76; RESP 18; TEMP 36.7; O2SAT 98
[2024-09-23 09:35] VITALS: BP 123/64; PULSE 75; RESP 18; O2SAT 98
[2024-09-23 09:40] VITALS: BP 126/72; PULSE 73; RESP 18; O2SAT 99
[2024-09-23 09:45] VITALS: BP 132/73; PULSE 72; RESP 18; O2SAT 98
[2024-09-23 09:58] VITALS: TEMP 36.8
== END 2024-09-23 10:16 | disposition home or self-care (01) ==
PROVIDERS: PCP Internal Medicine; Visit Provider Urology
PROC: (CPT 50590; principal; 2024-09-23 08:30)
DX: N20.0 Calculus of kidney (principal); E11.9 Type 2 diabetes mellitus without complications; Z79.84 Long term (current) use of oral hypoglycemic drugs; Z79.85 Long-term (current) use of injectable non-insulin antidiabetic drugs; Z98.890 Other specified postprocedural states
CPT/HCPCS: 50590; 74018; 82947; J0131; J0690; J2003; J2704; J3010

== ENCOUNTER → 2024-09-23 06:49 | Outpatient (BNV) | payer BC, MEDICAID, SELFPAY | PROVIDERS: PCP Internal Medicine; Visit Provider Urology | DX: N20.0 Calculus of kidney (principal) | CPT/HCPCS: 50590 ==

== ENCOUNTER 2024-10-27 08:05 | Outpatient (REF) | payer BC, MEDICAID, SELFPAY ==
--- NOTE | ~2024-10-27 | US_ITS ---
CLINICAL HISTORY: N20.0 - Calculus of kidney US Renal Comparison: None Findings: Right kidney normal size and echotexture, 13.6 cm length. Left kidney normal size and echotexture, 13.4 cm length. No hydronephrosis of either kidney. Normal color Doppler. IMPRESSION: 1. Normal kidneys. This document has been electronically signed by: Elpidio Ferrer MD on 10/27/2024 21:32:14
== END 2024-10-27 08:06 | disposition home or self-care (01) ==
LOC: HO.HMGCX 08:05
PROVIDERS: PCP Internal Medicine; Visit Provider Urology
DX: N20.0 Calculus of kidney (principal); R10.9 Unspecified abdominal pain
CPT/HCPCS: 76775

== ENCOUNTER → 2024-10-27 08:11 | Outpatient (BNV) | payer BC, MEDICAID, SELFPAY | PROVIDERS: PCP Internal Medicine; Visit Provider Radiology Vascular & Interventional Radiology | DX: N20.0 Calculus of kidney (principal) | CPT/HCPCS: 76775 ==

== ENCOUNTER 2024-11-06 15:06 | Outpatient (AMB) | payer BC, MEDICAID, SELFPAY ==
--- NOTE | 2024-11-06 11:37 | A.OFFVIS_ITS ---
Intake Visit Reasons: ESWL- follow up/KUB/US (Set) Intake Note: Patient is Present for Follow Up ESWL Ultrasound follow up Urology Medication: Tamsulosin Antibiotic Allergies:None Blood Thinners: None Allergies No Known Allergies Allergy (Verified 07/31/24 13:25) Medication List - Last Reconciled 11/06/24 by Freddie An MD canagliflozin (Invokana) 300 mg PO DAILY lisinopril 10 mg PO DAILY metformin 500 mg PO BID naproxen 500 mg PO BID PRN oxycodone 5 mg PO Q6H PRN pioglitazone 30 mg PO DAILY semaglutide (Rybelsus) 3 mg PO DAILY tamsulosin (Flomax) 0.4 mg PO DAILY HPI Comments Details: 11/06/24--s/p left eswl on 09/23/24-- discussed renal us --10/27/24- no residual calculi noted, kidneys wnL. The patient has brought the stone fragments in. Will send for analysis. Plan - 24 hr urine. 07/31/24--Status post right ureteroscopy laser lithotripsy, stent 07/14/24 Here to have stent removed. Right ureteral stent without removed difficulty. The p atient has Left renal stone. Discussed risks to include but not limited to, blood in the urine, bruising to the skin, kidney hematoma, possible need for another procedure if a stone fragment obstructs the ureter while passing, possible need to repeat procedure if stone is not completely fragmented. 07/07/24--Volodymyr is a very pleasant 43-year-old male patient of Dr. Morales who was accompanied by his father at today's video telehealth appointment. He has a past medical history of type 2 diabetes. He is being followed up on today via video telehealth for his history of nephrolithiasis and hydronephrosis. In discussion with the patient today reports having seeked emergency room care at [facility] this weekend for ongoing right-sided flank/abdominal pain he had been experiencing that was associated with nausea and vomiting. A CT of the abdomen was ordered and performed and these results were reviewed with the patient today. Mild right-sided hydronephrosis secondary to a 7 mm calculus within the proximal right ureter. 1.2 cm nonobstructing calculus of the left kidney no left-sided hydronephrosis. He reports compliance with medications as prescribed by ER physician. He reports pain has significantly decreased however continues with right-sided flank pain at times. He denies any previous history of nephrolithiasis and or surgical intervention for nephrolithiasis however he does report a family history of nephrolithiasis. He does not believe he has passed his kidney stone. We discussed surgical intervention for obstructing right nephrolithiasis as well as risks and benefits of this interventions. He otherwise offers no other issues or concerns at this time. [facility] Medical History Diabetes mellitus type 2, uncomplicated Surgical History Hx of cystoscopy History of surgery Hx of adenoidectomy Hx of tonsillectomy Social History Are you a primary acute care registered nurse to a significant other at home: No Do you presently have visiting nurse or other home services: No Patient Tobacco Use Status: Never used Tobacco Review of Systems Const All systems reviewed & are unremarkable except as noted in HPI and below Reports no additional complaints Eyes Reports no additional complaints ENT Reports no additional complaints Card Reports no additional complaints Resp Reports no additional complaints GI Reports no additional complaints Reports as per HPI Musc Reports no additional complaints Skin/Breast Reports system reviewed and no additional complaints, except as documented Neuro Reports no additional complaints Psych Reports no additional complaints Endo Reports no additional complaints Flavio/Lymph Reports no additional complaints Aller/Immun Reports no additional complaints Results AMB Urinalysis, Automated UA Leukoctes 0 Vanessa/uL Last Edit by Vandana Ventura [facility] on 11/06/24 15:44 UA Nitrite Negative Last Edit by Vandana Ventura [facility] on 11/06/24 15:44 UA Urobilinogen 0.2 mg/dL Last Edit by Vandana Ventura [facility] on 11/06/24 15:4 4 UA Protein 0 mg/dL Last Edit by Vandana Ventura [facility] on 11/06/24 15:44 UA pH 6.0 Last Edit by Vandana Ventura [facility] on 11/06/24 15:44 UA Blood 0 Wilbert/uL Last Edit by LYNDSAY Hernandez on 11/06/24 15:44 UA Specific Phelps 1.010 Last Edit by JENNY HernandezA on 11/06/24 15: 44 UA Ketone Negative Last Edit by LYNDSAY Hernandez on 11/06/24 15:44 UA Bilirubin 0 mg/dL Last Edit by JENNY HernandezA on 11/06/24 15:44 UA Glucose 1000 mg/dL Last Edit by LYNDSAY Hernandez on 11/06/24 15:44 Results Reviewed Results Reviewed: Laboratory Last Values Urine pH (Auto) 6.0 11/06/24 15:37 Specific Phelps (Auto) 1.010 11/06/24 15:37 Urine Protein (Auto) 0 mg/dL 11/06/24 15:37 Glucose (UA)(Auto) 1000 mg/dL 11/06/24 15:37 Urine Ketones (Auto) Negative 11/06/24 15:37 Urine Blood (Auto) 0 Wilbert/uL 11/06/24 15:37 Urine Nitrite (Auto) Negative 11/06/24 15:37 Urine Bilirubin (Auto) 0 mg/dL 11/06/24 15:37 Urine Urobilinogen (Auto) 0.2 mg/dL 11/06/24 15:37 Leukocyte Esterase (Auto) 0 Vanessa/uL 11/06/24 15:37 Date of Service: 10/27/24 US Renal Comparison: None Findings: Right kidney normal size and echotexture, 13.6 cm length. Left kidney normal size and echotexture, 13.4 cm length. No hydronephrosis of either kidney. Normal color Doppler. IMPRESSION: 1. Normal kidneys. Date of Service: 07/04/24 EXAMINATION: CT ABDOMEN AND PELVIS WITHOUT CONTRAST FINDINGS: Visualized lung bases are well aerated. Thin pleural-based linear density within the medial right lung base is nonspecific but most suggestive of atelectasis versus scarring. The liver is normal in size. There is diffusely decreased attenuation of the liver. The gallbladder is normal in appearance. There is fatty atrophy of the pancreas. The spleen and adrenal glands are unremarkable. There is mild right-sided hydronephrosis secondary to a 7 mm calculus within the proximal right ureter. No other renal calculi are noted within the right kidney. There is mild to moderate asymmetric perinephric stranding of the right kidney. There is a 1.2 cm nonobstructing calculus noted within the lower pole of the left kidney. This stone demonstrates Hounsfield units of approximately 500 and is located 14 cm the posterior skin surface. There is no left-sided hydronephrosis. Normal caliber loops of small and large bowel. Mild colonic diverticulosis without CT evidence to suggest active diverticulitis. Normal appendix. Normal caliber abdominal aorta. No retroperitoneal lymphadenopathy. The bladder is normal in appearance. The prostate gland is normal in size. No gross free pelvic fluid. No inguinal lymphadenopathy. Mild diffuse degenerative changes of the spine IMPRESSION: 1. Mild right-sided hydronephrosis secondary to a 7 mm calculus within the proximal right ureter. 2. 1.2 cm nonobstructing calculus of the left kidney. No left-sided hydronephrosis. 3. Diffusely decreased attenuation of the liver suggesting hepatic steatosis. Correlation with liver enzymes recommended. 4. Mild colonic diverticulosis. Assessment & Plan Assessment & Plan (1) Kidney stone on left side: Comment: s/p ESWL on 09/23/24 Code(s): N20.0 - Calculus of kidney Category: Medical Plan 24 hr urine Orders: Orders Surgical Today N20.0 - Calculus of kidney AMB Urinalysis Automated Today N20.0 - Calculus of kidney, Z13.9 - Encounter for screening, unspecified Medications: Discontinued oxycodone-acetaminophen 5-325 mg (Percocet) Partial Fill upon patient request. Discontinued Reason: Patient no longer taking 1 tab PO .[id number] PRN 5 tabs 0RF pain Patient Instructions: The patient had an opportunity to ask questions regarding treatment plan. The patient expressed understanding and agreement with the above treatment plan. The patient is aware they should contact our office by phone for worsening of their current condition or the appearance of new symptoms. Compliance is encouraged with any medications and followup testing that is ordered. It is a privilege to be allowed the opportunity to participate in the urologic care of your patient. If you have any questions or concerns regarding treatment for the above conditions please do not hesitate to contact me. The office telephone contact is [phone]. This note is constructed in part using voice recognition software. While every effort has been made to ensure accuracy supervisor audit clerks errors may have been included. Yours sincerely, Freddie An MD Coding Level of Care Code Global (37008) Diagnoses Kidney stone on left side N20.0
== END 2024-11-06 16:08 | disposition home or self-care (01) ==
PROVIDERS: PCP Internal Medicine; Visit Provider Urology
DX: Z13.9 Encounter for screening, unspecified (principal); N20.0 Calculus of kidney
CPT/HCPCS: 99024

== ENCOUNTER 2024-11-06 15:06 | Outpatient (REF) | payer BC, MEDICAID, SELFPAY ==
[2024-11-13 19:48] LABS: Stone Source KIDNEY STONE
== END 2024-11-06 15:07 | disposition home or self-care (01) ==
LOC: HO.LAB 15:06
PROVIDERS: PCP Internal Medicine; Visit Provider Urology
DX: N20.0 Calculus of kidney (principal)
CPT/HCPCS: 81003; 82365; 88300

== ENCOUNTER 2025-02-23 09:57 | Outpatient (AMB) | payer BC, MEDICAID, SELFPAY ==
--- NOTE | 2025-02-23 10:17 | MHC.OFFVIS ---
Intake Visit Reasons: Followup/UrineTest Intake Note: Patient is present for follow up/Urine test Urology Medication: none Antibiotic Allergies: none Blood Thinners: None Allergies No Known Allergies Allergy (Verified 02/23/25 11:01) Medication List - Last Reconciled 02/23/25 by Freddie An MD canagliflozin (Invokana) 300 mg PO DAILY lisinopril 10 mg PO DAILY metformin 500 mg PO BID pioglitazone 30 mg PO DAILY pyridoxine (vitamin B6) 100 mg PO DAILY semaglutide (Rybelsus) 3 mg PO DAILY HPI Comments Details: 02/23/25--Discussed 24 hour urine results collected:12/11/24 Total volume 2.85 L, Calcium 270 mg; Oxalate 45 mg, Citrate 554 mg, Sodium 251. I have discussed diet modification to decrease risk of forming more kidney stones. I have discussed low oxalate diet and specific foods to avoid including certain green leafy vegetables, chocalate, nuts, tea, beets, rubarb; low sodium, decreased use of animal protein and the importance of hydration drinking up to 2-2.5 liters of fluids and use of adding lemon to water to increase citrate in the diet. A pamphlet is also provided today. Will start Vit B6 100 mg daily. Cont to monitor kidneys. FU renal US next year. Results: Stone analysis - 11/09/24--Calcium Oxalate Dihydrate 10%,Calcium Oxalate Monohydrate 90% 11/06/24--s/p left eswl on 09/23/24-- discussed renal us --10/27/24- no residual calculi noted, kidneys wnL. The patient has brought the stone fragments in. Will send for analysis. Plan - 24 hr urine. 07/31/24--Status post right ureteroscopy laser lithotripsy, stent 07/14/24 Here to have stent removed. Right ureteral stent without removed difficulty. The patient has Left renal stone. Discussed risks to include but not limited to, blood in the urine, bruising to the skin, kidney hematoma, possible need for another procedure if a stone fragment obstructs the ureter while passing, possible need to repeat procedure if stone is not completely fragmented. 07/07/24--Volodymyr is a very pleasant 43-year-old male patient of Dr. Morales who was accompanied by his father at today's video telehealth appointment. He has a past medical history of type 2 diabetes. He is being followed up on today via video telehealth for his history of nephrolithiasis and hydronephrosis. In discussion with the patient today reports having seeked emergency room care at [facility] this weekend for ongoing right-sided flank/abdominal pain he had been experiencing that was associated with nausea and vomiting. A CT of the abdomen was ordered and performed and these results were reviewed with the patient today. Mild right-sided hydronephrosis secondary to a 7 mm calculus within the proximal right ureter. 1.2 cm nonobstructing calculus of the left kidney no left-sided hydronephrosis. He reports compliance with medications as prescribed by ER physician. He reports pain has significantly decreased however continues with right-sided flank pain at times. He denies any previous history of nephrolithiasis and or surgical intervention for nephrolithiasis however he does report a family history of nephrolithiasis. He does not believe he has passed his kidney stone. We discussed surgical intervention for obstructing right nephrolithiasis as well as risks and benefits of this interventions. He otherwise offers no other issues or concerns at this time. [facility] Medical History Diabetes mellitus type 2, uncomplicated Surgical History Hx of cystoscopy History of surgery Hx of adenoidectomy Hx of tonsillectomy Social History Are you a primary hospice home care coordinator to a significant other at home: No Do you presently have visiting nurse or other home services: No Patient Tobacco Use Status: Never used Tobacco Review of Systems Const All systems reviewed & are unremarkable except as noted in HPI and below Reports no additional complaints Eyes Reports no additional complaints ENT Reports no additional complaints Card Reports no additional complaints Resp Reports no additional complaints GI Reports no additional complaints Reports as per HPI Musc Reports no additional complaints Skin/Breast Reports system reviewed and no additional complaints, except as documented Neuro Reports no additional complaints Psych Reports no additional complaints Endo Reports no additional complaints Flavio/Lymph Reports no additional complaints Aller/Immun Reports no additional complaints Results Reviewed Results Reviewed: 11/09/24-[address]: Matthew Morales MD ORDERED: Kidney Stone QUERIES: Kidney Stone Source: KIDNEY STONE Test Result Flag Reference Component 1 SEE NOTE Calcium Oxalate Dihydrate (Weddellite) 10% Calcium Oxalate Monohydrate (Whewellite) 90% Stone Weight 0.004 g This test was developed and its analytical performance characteristics have been determined by [employer]. It has not been cleared or approved by FDA. This assay has been validated pursuant to the CLIA regulations and is used for clinical purposes. THIS TEST WAS PERFORMED AT: [facility] [address] [place] [address] CLARY JUSTIN MD,PHD,WALKER Stone Source KIDNEY STONE Date of Service: 10/27/24 US Renal Comparison: None Findings: Right kidney normal size and echotexture, 13.6 cm length. Left kidney normal size and echotexture, 13.4 cm length. No hydronephrosis of either kidney. Normal color Doppler. IMPRESSION: 1. Normal kidneys. Date of Service: 07/04/24 EXAMINATION: CT ABDOMEN AND PELVIS WITHOUT CONTRAST FINDINGS: Visualized lung bases are well aerated. Thin pleural-based linear density within the medial right lung base is nonspecific but most suggestive of atelectasis versus scarring. The liver is normal in size. There is diffusely decreased attenuation of the liver. The gallbladder is normal in appearance. There is fatty atrophy of the pancreas. The spleen and adrenal glands are unremarkable. There is mild right-sided hydronephrosis secondary to a 7 mm calculus within the proximal right ureter. No other renal calculi are noted within the right kidney. There is mild to moderate asymmetric perinephric stranding of the right kidney. There is a 1.2 cm nonobstructing calculus noted within the lower pole of the left kidney. This stone demonstrates Hounsfield units of approximately 500 and is located 14 cm the posterior skin surface. There is no left-sided hydronephrosis. Normal caliber loops of small and large bowel. Mild colonic diverticulosis without CT evidence to suggest active diverticulitis. Normal appendix. Normal caliber abdominal aorta. No retroperitoneal lymphadenopathy. The bladder is normal in appearance. The prostate gland is normal in size. No gross free pelvic fluid. No inguinal lymphadenopathy. Mild diffuse degenerative changes of the spine IMPRESSION: 1. Mild right-sided hydronephrosis secondary to a 7 mm calculus within the proximal right ureter. 2. 1.2 cm nonobstructing calculus of the left kidney. No left-sided hydronephrosis. 3. Diffusely decreased attenuation of the liver suggesting hepatic steatosis. Correlation with liver enzymes recommended. 4. Mild colonic diverticulosis. Assessment & Plan Assessment & Plan (1) History of kidney stones: Code(s): Z87.442 - Personal history of urinary calculi Category: Medical Plan Discussed low sodium and low oxalate diet, will start Vit B6 100 mg daily. Cont to monitor kidneys. FU renal US next year. Orders: Orders US renal BI 9 Months Z87.442 - Personal history of urinary calculi Medications: New pyridoxine (vitamin B6) 100 mg PO DAILY 90 tabs 3RF Coding Level of Care Code Est Pt Level 4 (90682) Diagnoses History of kidney stones Z87.442
== END 2025-02-23 10:57 | disposition home or self-care (01) ==
LOC: HO.HUSH 09:57
PROVIDERS: PCP Internal Medicine; Visit Provider Urology
DX: Z13.9 Encounter for screening, unspecified (principal); Z87.442 Personal history of urinary calculi
CPT/HCPCS: 99214

== ENCOUNTER → 2025-02-23 09:57 | Outpatient (BNVA) | payer BC, MEDICAID, SELFPAY | PROVIDERS: PCP Internal Medicine; Visit Provider Urology | DX: Z87.442 Personal history of urinary calculi (principal) | CPT/HCPCS: 81003 ==